=== PATIENT | female | born 1985 | race Caucasian/White ===

== ENCOUNTER 2019-03-01 08:00 | Inpatient (IN) ==
[2019-03-01] MEDS ORDERED: Epidural Premix (fent/bupiv) 110 ML EP SCH (08:30)
[2019-03-01] MEDS ORDERED: Ondansetron 4 MG/2 ML VIAL IVP PRN (09:01)
[2019-03-01] MEDS ORDERED: Lidocaine 1% 20 ML MDV INFILT PRN (09:01)
[2019-03-01] MEDS ORDERED: Metoclopramide 10 MG/2 ML VIAL IVP PRN (09:01)
[2019-03-01] MEDS ORDERED: Naloxone 0.4 MG/ML INJ IVP PRN (09:01)
[2019-03-01] MEDS ORDERED: Famotidine 20 MG/2 ML VIAL IVP PRN (09:01)
[2019-03-01] MEDS ORDERED: miSOPROStoL 25 MCG TABLET VG PRN (09:04)
[2019-03-01] MEDS ORDERED: Ringers Solution, Lactated 1,000 ML IVC SCH (09:15)
[2019-03-01 10:16] LABS: Basophils % 0.5 %; Eosinophils # 0.1 K/mcL (0.0-0.6); Eosinophils % 0.8 %; Hematocrit 38.7 % (35.3-44.9); Hemoglobin 12.8 g/dL (11.5-15.4); Lymphocytes # 1.6 K/mcL (0.6-4.6); Lymphocytes % 20.8 %; Mean Corpuscular HGB Conc 33.1 g/dL (31.6-35.5); Mean Corpuscular Hemoglobin 29.2 pg (28.0-33.3); Mean Corpuscular Volume 88.4 fL (83.0-100.0); Mean Platelet Volume 10.6 fL (9.4-12.4); Monocytes # 0.6 K/mcL (0.0-1.3); Monocytes % 7.7 %; Neutrophils # 5.4 K/mcL (1.6-8.9); Platelet Count 269 K/mcL (140-400); Red Blood Count 4.38 M/mcL (3.82-4.97); Red Cell Distribution Width 12.9 % (11.5-14.5); Segmented Neutrophils % 69.2 %; White Blood Count 7.8 K/mcL (4.3-11.1)
[2019-03-01 11:48] LABS: Amphetamine Screen,Urine Negative ng/mL (Cutoff=1000); Barbiturate Screen,Urine Negative ng/mL (Cutoff=200); Benzodiazepines Screen,Urine Negative ng/mL (Cutoff=200); Cannabinoid Screen,Urine Negative ng/mL (Cutoff = 50); Cocaine Screen,Urine Negative ng/mL (Cutoff= 300); Opiate Screen,Urine Negative ng/mL (Cutoff=300); Phencyclidine Screen,Urine Negative ng/mL (Cutoff=25)
[2019-03-01] MEDS ORDERED: Oxytocin 20 units/ LR 1000 mL 20 UNIT/1,000 ML BAG IVC SCH (18:30)
[2019-03-02] MEDS ORDERED: Lanolin 7 G OINT...G. TP PRN (03:53)
[2019-03-02] MEDS ORDERED: Acetaminophen 325 MG TABLET PO PRN (03:53)
[2019-03-02] MEDS ORDERED: Ibuprofen 600 MG TABLET PO PRN (03:53)
[2019-03-02] MEDS ORDERED: Benzocaine/Menthol 56 GM AEROSOL SPRAY TP PRN (03:53)
[2019-03-02] MEDS ORDERED: Oxytocin 20 units/ LR 1000 mL 20 UNIT/1,000 ML BAG IVC SCH (03:53)
[2019-03-02 07:01] LABS: Basophils % 0.1 %; Eosinophils # 0.1 K/mcL (0.0-0.6); Eosinophils % 0.5 %; Hematocrit 32.5 % (35.3-44.9); Hemoglobin 11.4 g/dL (11.5-15.4); Immature Granulocytes % 0.5 % (0-4); Lymphocytes # 1.4 K/mcL (0.6-4.6); Mean Corpuscular HGB Conc 35.1 g/dL (31.6-35.5); Mean Corpuscular Hemoglobin 30.2 pg (28.0-33.3); Mean Corpuscular Volume 86.2 fL (83.0-100.0); Mean Platelet Volume 10.4 fL (9.4-12.4); Monocytes # 0.7 K/mcL (0.0-1.3); Monocytes % 6.9 %; Neutrophils # 8.3 K/mcL (1.6-8.9); Platelet Count 229 K/mcL (140-400); Red Blood Count 3.77 M/mcL (3.82-4.97); Red Cell Distribution Width 13.1 % (11.5-14.5); White Blood Count 10.6 K/mcL (4.3-11.1)
[2019-03-02] MEDS: Prenatal Vit/FA 1 EACH TABLET PO SCH (08:12)
[2019-03-03] MEDS: Prenatal Vit/FA 1 EACH TABLET PO SCH (07:34)
[2019-03-03 07:46] VITALS: BP 125/85
== END 2019-03-03 15:19 | disposition home or self-care (01) | DRG 807 ==
LOC: 1NENULAB 08:19 → 1NENUOBS 03-02 04:55
PROVIDERS: ADMIT Obstetrics & Gynecology; ATTEND Obstetrics & Gynecology

== ENCOUNTER 2020-12-22 08:13 | Inpatient (IN) ==
[2020-12-22] MEDS ORDERED: miSOPROStoL 25 MCG TABLET VG PRN (08:26)
[2020-12-22] MEDS ORDERED: Famotidine 20 MG/2 ML VIAL IVP PRN (08:26)
[2020-12-22] MEDS ORDERED: Naloxone 0.4 MG/ML INJ IVP PRN (08:26)
[2020-12-22] MEDS ORDERED: Metoclopramide 10 MG/2 ML VIAL IVP PRN (08:26)
[2020-12-22] MEDS ORDERED: *HR* Nalbuphine 10 MG/ML AMPUL IV PRN (08:26)
[2020-12-22] MEDS ORDERED: Epidural Premix (fent/bupiv) 110 ML EP SCH (09:15)
[2020-12-22] MEDS ORDERED: EPHEDrine 50 MG/ML VIAL IVP PRN (09:15)
[2020-12-22] MEDS: Ringers Solution, Lactated 1,000 ML IVC SCH ×2 (09:58→15:14)
[2020-12-22 10:19] LABS: Amphetamine Screen,Urine Negative ng/mL (Cutoff=1000); Barbiturate Screen,Urine Negative ng/mL (Cutoff=200); Basophils % 0.2 %; Benzodiazepines Screen,Urine Negative ng/mL (Cutoff=200); Cannabinoid Screen,Urine Negative ng/mL (Cutoff = 50); Cocaine Screen,Urine Negative ng/mL (Cutoff= 300); Eosinophils # 0.1 K/mcL (0.0-0.6); Eosinophils % 1.1 %; Hematocrit 38.5 % (35.3-44.9); Hemoglobin 12.7 g/dL (11.5-15.4); Immature Granulocytes % 1.1 % (0-4); Lymphocytes % 19.9 %; Mean Corpuscular Volume 87.9 fL (83.0-100.0); Mean Platelet Volume 10.6 fL (9.4-12.4); Monocytes # 0.7 K/mcL (0.0-1.3); Monocytes % 6.6 %; Neutrophils # 7.1 K/mcL (1.6-8.9); Opiate Screen,Urine Negative ng/mL (Cutoff=300); Phencyclidine Screen,Urine Negative ng/mL (Cutoff=25); Platelet Count 269 K/mcL (140-400); Red Blood Count 4.38 M/mcL (3.82-4.97); Red Cell Distribution Width 14.1 % (11.5-14.5); Segmented Neutrophils % 71.1 %; White Blood Count 9.9 K/mcL (4.3-11.1)
[2020-12-22] MEDS ORDERED: Oxytocin 20 units/ LR 1000 mL 20 UNIT/1,000 ML BAG IVC SCH ×2 (14:00→23:33)
[2020-12-22] MEDS ORDERED: Ondansetron ODT 4 MG TAB.RAPDIS SL PRN (23:33)
[2020-12-22] MEDS ORDERED: Benzocaine/Menthol 56 GM AEROSOL SPRAY TP PRN (23:33)
[2020-12-22] MEDS ORDERED: Lanolin 7 G OINT...G. TP PRN (23:33)
[2020-12-23] MEDS: Acetaminophen 325 MG TABLET PO SCH ×4 (00:07→20:57)
[2020-12-23] MEDS: Ibuprofen 600 MG TABLET PO SCH ×4 (00:08→20:57)
[2020-12-23 04:13] VITALS: O2SAT 97
[2020-12-23 05:51] LABS: Basophils % 0.3 %; Eosinophils # 0.1 K/mcL (0.0-0.6); Eosinophils % 0.7 %; Hematocrit 31.5 % (35.3-44.9); Hemoglobin 10.4 g/dL (11.5-15.4); Immature Granulocytes % 0.8 % (0-4); Lymphocytes # 2.1 K/mcL (0.6-4.6); Lymphocytes % 20.1 %; Mean Corpuscular Hemoglobin 28.7 pg (28.0-33.3); Mean Platelet Volume 10.8 fL (9.4-12.4); Monocytes # 0.9 K/mcL (0.0-1.3); Monocytes % 8.6 %; Neutrophils # 7.3 K/mcL (1.6-8.9); Platelet Count 228 K/mcL (140-400); Red Blood Count 3.62 M/mcL (3.82-4.97); Red Cell Distribution Width 13.9 % (11.5-14.5); Segmented Neutrophils % 69.5 %; White Blood Count 10.5 K/mcL (4.3-11.1)
[2020-12-23] MEDS: Prenatal Vit/FA 1 EACH TABLET PO SCH (09:00)
[2020-12-24] MEDS: Ibuprofen 600 MG TABLET PO SCH (11:57)
[2020-12-24] MEDS: Prenatal Vit/FA 1 EACH TABLET PO SCH (11:57)
[2020-12-24] MEDS: Acetaminophen 325 MG TABLET PO SCH (11:57)
[2020-12-24 11:59] VITALS: PULSE 98; TEMP 98.1
[2020-12-24 12:19] VITALS: BP 134/95
== END 2020-12-24 15:32 | disposition home or self-care (01) | DRG 807 ==
LOC: 1NENULAB 08:13 → 1NENUOBS 23:33
PROVIDERS: ADMIT Obstetrics & Gynecology; ATTEND Obstetrics & Gynecology